=== PATIENT | male | born 1940 | race Caucasian/White ===

== ENCOUNTER 2019-08-29 06:52 | Day surgery (SDC) | payer OTHER ==
[2019-08-28 15:55] VITALS: BP 140/73
[2019-08-28 16:13] LABS: BASOPHILS % (AUTO) 0.9 % (0.0-5.0); EOSINOPHILS % (AUTO) 1.1 % (0.0-8.0); HEMATOCRIT 44.1 % (42-54); LYMPHOCYTES % (AUTO) 18.7 % (21.0-51.0); MEAN CORPUSCULAR HEMOGLOBIN 30.6 pg (27.0-33.0); MEAN CORPUSCULAR HGB CONC 32.4 g/dL (32.0-36.0); MEAN CORPUSCULAR VOLUME 94.4 fL (79-99); NEUTROPHILS % (AUTO) 71.1 % (40.0-77.0); PLATELET COUNT (AUTO) 181 K/uL (130-400); RED BLOOD CELL COUNT(AUTO) 4.67 MIL/uL (4.50-6.20); RED CELL DISTRIBUTION WIDTH 14.1 % (11.0-15.5); WHITE BLOOD COUNT (AUTO) 8.7 K/uL (4.8-10.8)
[2019-08-28 16:29] LABS: POTASSIUM 4.3 mmol/L (3.5-5.1)
[~2019-08-29] VITALS: Ht 180.3 cm; Wt 95.9 kg
[2019-08-29] VITALS (15 sets, daily range): BP systolic 128–146; BP diastolic 6–74
[~2019-08-29 06:52] MED LIST: ACET650T24 PO; ENAL5TAB PO; TAMS-1 PO; TRAM50TA4 PO
--- NOTE | 2019-08-29 07:50 | NUR ---
PAIN pt denies pain at rest ,right knee pain when ambulating Addendum: 08/29/19 at 0823 by SNOW SOTELO RN RN Amended: Links added.
[2019-08-29] MEDS ORDERED: CEFAZOLIN SODIUM 1 GM VIAL IVP ONE (08:00)
[2019-08-29] MEDS ORDERED: LACTATED RINGERS 1000ML 1,000 ML IV ONE (08:12)
[2019-08-29] MEDS ORDERED: CLINDAMYCIN 900 MG/D5% WATER 50 ML IV ONE (08:12)
[2019-08-29] MEDS ORDERED: MIDAZOLAM HCL 1 MG/ML 2ML VIAL ONE (08:38)
[2019-08-29] MEDS ORDERED: PROPOFOL 10 MG/ML 20ML VIAL IV ONE (08:38)
[2019-08-29] MEDS ORDERED: FENTANYL CITRATE PF 50 MCG/1 ML 2ML VIAL ONE ×2 (08:39→08:50)
[2019-08-29] MEDS ORDERED: LIDOCAINE PF 2% 5ML ABBOJECT ONE (08:50)
[2019-08-29] MEDS ORDERED: DEXAMETHASONE SOD PHOSPHATE 10MG/ML 1ML VIAL ONE (08:55)
[2019-08-29] MEDS ORDERED: KETOROLAC TROMETHAMINE 30MG/ML ONE (08:55)
[2019-08-29] MEDS ORDERED: ONDANSETRON HCL 4 MG/2 ML VIAL ONE (08:55)
[2019-08-29] MEDS ORDERED: EPHEDRINE SULFATE 50 MG/ML AMPULE ONE (09:17)
[2019-08-29] MEDS ORDERED: ALBU90AE2 IH (09:31)
[2019-08-29] MEDS ORDERED: CLIN300C3 PO (10:01)
--- NOTE | 2019-08-29 11:30 | NUR ---
ASSESSMENT RECEIVED PT FROM PACU STAFF MALIK LEUNG. PT [email or web address]. AT BEDSIDE. Addendum: 08/29/19 at 1350 by JEAN PIERRE FUNES RN RN WRONG TIME RECEIVED PT AT 1030.
--- NOTE | 2019-08-29 12:15 | NUR ---
DISCHARGE ORAL AND WRITTEN DISCHARGE INSTRUCTIONS GIVEN TO PT AND PTS ALONG WITH PRESCRIPTION. CRUTCHES GIVEN TO PTS WELL. NO OTHER QUESTIONS AT THIS TIME. Addendum: 08/29/19 at 1351 by JEAN PIERRE FUNES RN RN ALONG WITH ICE PACKS GIVEN TO PTS
== END 2019-08-29 12:30 | disposition home or self-care (01) ==
LOC: DAH 06:52
PROVIDERS: ATTEND Orthopaedic Surgery
DX: M23.221 Derangement of posterior horn of medial meniscus due to old tear or injury, right knee (principal); M17.11 Unilateral primary osteoarthritis, right knee; M25.561 Pain in right knee; G89.29 Other chronic pain; M94.261 Chondromalacia, right knee; M67.51 Plica syndrome, right knee; I10 Essential (primary) hypertension; Z88.0 Allergy status to penicillin; Z79.899 Other long term (current) drug therapy; Z90.49 Acquired absence of other specified parts of digestive tract; Z98.890 Other specified postprocedural states; Z87.891 Personal history of nicotine dependence; Z72.89 Other problems related to lifestyle; Z82.3 Family history of stroke
CPT/HCPCS: 29881; 36415; 80048; 85025; A4215; A4221; A4222; A4223; A4606; A4649 ×2; A4663; A4930 ×2; A5120; A6223; J1100; J1885; J2001; J2250; J2405; J2704; J3010 ×2; J3490 ×2; J7120 ×2